=== PATIENT | female | born 1995 | race Caucasian/White ===

== ENCOUNTER 2017-10-04 03:31 | Inpatient (IN) | payer BC ==
[~2017-10-04] VITALS: Ht 170.2 cm; Wt 59.0 kg
[2017-10-04] VITALS (10 sets, daily range): BP systolic 100–136; BP diastolic 51–96
[2017-10-04 04:16] LABS: BASOPHILS % (AUTO) 0.9 % (0.0-2.0); HEMATOCRIT 43.2 % (37.0-47.0); LYMPHOCYTES % (AUTO) 37.8 % (20.0-45.0); MEAN CORPUSCULAR VOLUME 88 FL (80-99); MONOCYTES % (AUTO) 8.9 % (1.0-10.0); NEUTROPHILS % (AUTO) 51.4 % (45.0-75.0); PLATELET COUNT 286 K/UL (150-450); RED BLOOD COUNT 4.91 M/UL (4.20-5.40); RED CELL DISTRIBUTION WIDTH 10.5 % (11.6-14.8); WHITE BLOOD COUNT 6.4 K/UL (4.8-10.8)
[2017-10-04 04:27] LABS: ANION GAP 14 mmol/L (5-15); BLOOD UREA NITROGEN 13 mg/dL (7-18); CALCIUM 8.8 MG/DL (8.5-10.1); CARBON DIOXIDE 24 MMOL/L (21-32); CHLORIDE 105 MMOL/L (98-107); POTASSIUM 3.6 MMOL/L (3.5-5.1); SODIUM 143 MMOL/L (136-145)
[2017-10-04 04:41] LABS: ALANINE AMINOTRANSFERASE 59 U/L (12-78); ALBUMIN 4.6 G/DL (3.4-5.0); ALBUMIN/GLOBULIN RATIO 1.1 (1.0-2.7); ALKALINE PHOSPHATASE 55 U/L (46-116); ASPARTATE AMINO TRANSFERASE 29 U/L (15-37); BILIRUBIN,TOTAL 0.2 MG/DL (0.2-1.0); CKMB 2.2 NG/ML (0.0-3.6); CREATINE KINASE 247 U/L (26-308)
[2017-10-04 05:03] LABS: APPEARANCE,URINE CLEAR; BILIRUBIN, URINE NEGATIVE (NEGATIVE); COLOR,URINE PALE YELLOW; GLUCOSE, URINE (UA) NEGATIVE (NEGATIVE); KETONES,URINE NEGATIVE (NEGATIVE); LEUKOCYTE ESTERASE ,URINE NEGATIVE (NEGATIVE); NITRITE,URINE NEGATIVE (NEGATIVE); PH,URINE 5 (4.5-8.0); PROTEIN,URINE 1+ (NEGATIVE); UROBILINOGEN,URINE NORMAL MG/DL (0.0-1.0)
--- NOTE | 2017-10-04 05:43 | Emergency Room Report ---
History of Present Illness General Chief Complaint: Overdose Source: Family Member, EMS Present Illness HPI Is a 22-year-old female with no significant past medical history. She presents with chief complaint of overdose and suicidal attempt. 911 was called by her mom in [place]. She had call her mother and state that she wanted a overdose and hanging herself. Mom called 911. Police and EMS got there patient was passed out with empty package of Benadryl. There was a full bottle of ibuprofen. There was other sleeping pill. History is limited on this patient because she can't give a history because of her condition. No injury. Allergies: Coded Allergies: UNABLE TO ASSESS (Unverified , 10/04/17) Patient History Past Medical History: see triage record, old chart reviewed Past Surgical History: other Family History: none Social History: ETOH Now: No Immunizations: other Reviewed Nursing Documentation: PMH: Agreed, PSxH: Agreed Nursing Documentation-PMH Past Medical History Deferred: Pt Cognitively Impaired Review of Systems ENT: Denies: sore throat Cardiovascular: Denies: chest pain, palpitations Gastrointestinal/Abdominal: Denies: nausea, vomiting, diarrhea Musculoskeletal: Denies: back problems Skin: Denies: rash Neurological: Denies: EASLEY, seizures All Other Systems: negative except mentioned in HPI Physical Exam Vital Signs Date Time Temp Pulse Resp B/P (MAP) Pulse Ox O2 Delivery O2 Flow Rate FiO2 10/04/17 03:28 98.0 146 18 120/70 98 Room Air 98.1 vitals with tachycardia Sp02 EP Interpretation: reviewed, normal General Appearance: no apparent distress, non-toxic, other - somnolent Head: normocephalic, atraumatic Eyes: PERRL - pupil 5 mm and reactive, EOMI ENT: dry mucus membranes Neck: supple/symm/no masses Respiratory: effort normal, no rhonchi, no wheezing Cardiovascular: no murmur, gallop, rub, other - tachycardic Gastrointestinal: non-tender, no mass, non-distended, no rebound/guarding, other - hypoactive bowel sounds Musculoskeletal: gait & station normal Neurologic: sensory intact, motor strength/tone normal, other - no focal deficit Skin: no rash, normal palpation, other - skin is dry Procedures Critical Care Time Critical Care Time Critical care is mandated in this patient who presented with potential life- threatening drug overdose. Patient require my urgent intervention to attenuate the risks of metabolic collapse which may lead to cardiovascular collapse and . Critical care time is 35 minutes excluding any reportable procedure. Critical care time included evaluation, multiple reevaluation, looking at old charts, interpreting laboratory and diagnostic data, discussing case with patient and family and consultants, and charting. Medical Decision Making Diagnostic Impression: Primary Impression: Drug overdose Qualified Codes: T50.902A - Poisoning by unspecified drugs, medicaments and biological substances, intentional self-harm, initial encounter Additional Impressions: Anticholinergic drug overdose Qualified Codes: T44.3X2A - Poisoning by other parasympatholytics [ anticholinergics and antimuscarinics] and spasmolytics, intentional self-harm, initial encounter Suicidal behavior Qualified Codes: T14.91XA - Suicide attempt, initial encounter Alcohol intoxication Qualified Codes: F10.920 - Alcohol use, unspecified with intoxication, uncomplicated Acute metabolic encephalopathy ER Course Patient presents with drug overdose of Benadryl.. She has anti-cholinergic syndrome. Heart rate improved with IV fluid. I held off on charcoal because of her condition. I worry about aspiration. Unknown time of ingestion. Once patient is more awake will medically clear for psychiatric evaluation/ admission. Patient is currently on a 5150. Laboratory Tests Test 10/04/17 04:00 10/04/17 04:30 White Blood Count 6.4 K/UL (4.8-10.8) Red Blood Count 4.91 M/UL (4.20-5.40) Hemoglobin 15.0 G/DL (12.0-16.0) Hematocrit 43.2 % (37.0-47.0) Mean Corpuscular Volume 88 FL (80-99) Mean Corpuscular Hemoglobin 30.5 PG (27.0-31.0) Mean Corpuscular Hemoglobin Concent 34.7 G/DL (32.0-36.0) Red Cell Distribution Width 10.5 % (11.6-14.8) L Platelet Count 286 K/UL (150-450) Mean Platelet Volume 7.7 FL (6.5-10.1) Neutrophils (%) (Auto) 51.4 % (45.0-75.0) Lymphocytes (%) (Auto) 37.8 % (20.0-45.0) Monocytes (%) (Auto) 8.9 % (1.0-10.0) Eosinophils (%) (Auto) 1.0 % (0.0-3.0) Basophils (%) (Auto) 0.9 % (0.0-2.0) Sodium Level 143 MMOL/L (136-145) Potassium Level 3.6 MMOL/L (3.5-5.1) Chloride Level 105 MMOL/L (98-107) Carbon Dioxide Level 24 MMOL/L (21-32) Anion Gap 14 mmol/L (5-15) Blood Urea Nitrogen 13 mg/dL (7-18) Creatinine 1.0 MG/DL (0.55-1.30) Estimat Glomerular Filtration Rate > 60 mL/min (>60) Glucose Level 150 MG/DL (74-106) H Calcium Level 8.8 MG/DL (8.5-10.1) Total Bilirubin 0.2 MG/DL (0.2-1.0) Aspartate Amino Transf (AST/SGOT) 29 U/L (15-37) Alanine Aminotransferase (ALT/SGPT) 59 U/L (12-78) Alkaline Phosphatase 55 U/L (46-116) Total Creatine Kinase 247 U/L (26-308) Creatine Kinase MB 2.2 NG/ML (0.0-3.6) Creatine Kinase MB Relative Index 0.8 Total Protein 8.7 G/DL (6.4-8.2) H Albumin 4.6 G/DL (3.4-5.0) Globulin 4.1 g/dL Albumin/Globulin Ratio 1.1 (1.0-2.7) Salicylates Level 1.1 ug/mL (2.8-20) L Urine Opiates Screen Negative (NEGATIVE) Acetaminophen Level < 2 MCG/ML (10-30) L Urine Barbiturates Screen Negative (NEGATIVE) Phencyclidine (PCP) Screen Negative (NEGATIVE) Urine Amphetamines Screen Negative (NEGATIVE) Urine Benzodiazepines Screen Negative (NEGATIVE) Urine Cocaine Screen Negative (NEGATIVE) Urine Marijuana (THC) Screen Positive (NEGATIVE) H Serum Alcohol 203 mg/dL Urine Color Pale yellow Urine Appearance Clear Urine pH 5 (4.5-8.0) Urine Specific [place] 1.020 (1.005-1.035) Urine Protein 1+ (NEGATIVE) H Urine Glucose (UA) Negative (NEGATIVE) Urine Ketones Negative (NEGATIVE) Urine Occult Blood Negative (NEGATIVE) Urine Nitrite Negative (NEGATIVE) Urine Bilirubin Negative (NEGATIVE) Urine Urobilinogen Normal MG/DL (0.0-1.0) Urine Leukocyte Esterase Negative (NEGATIVE) Urine RBC 0-2 /HPF (0 - 2) Urine WBC 0-2 /HPF (0 - 2) Urine Squamous Epithelial Cells Occasional /LPF Urine Bacteria Few /HPF (NONE) Urine HCG, Qualitative Negative (NEGATIVE) Lab Results Impression labs unremarkable except for elevated alcohol EKG Diagnostic Results Rate: tachycardiac Rhythm: NSR ST Segments: no acute changes Rhythm Strip Diag. Results Rhythm Strip Time: 05:43 EP Interpretation: yes Rate: 110 Rhythm: NSR, no PVC's, no ectopy Last Vital Signs Date Time Temp Pulse Resp B/P (MAP) Pulse Ox O2 Delivery O2 Flow Rate FiO2 10/04/17 03:40 117 21 Room Air 10/04/17 03:35 97.8 112/63 100 97.8 Status: improved Disposition: XFER TO PSYCH HOSP/UNIT Condition: Stable Referrals: NOT CHOSEN IPA/,REFERRING (PCP) BLOSSOM FROST M.D. Oct 04, 2017 05:43
[2017-10-04] MEDS ORDERED: UNOBMED (06:53)
--- NOTE | 2017-10-04 15:48 | History & Physical ---
History and Physical History & Physicial HP dictated # [id number] HAL REYES Oct 04, 2017 15:48
[2017-10-04] MEDS: D5 1/2NS 1,000 ML IV SCH (16:40)
[2017-10-04] MEDS ORDERED: Vitamin A&D Oint 2oz Tube TOPIC SCH (21:00)
--- NOTE | 2017-10-04 23:30 | History and Physical Report ---
DATE OF ADMISSION: 10/04/2017 CHIEF COMPLAINT: Reported drug overdose and suicidal attempt. HISTORY OF PRESENT ILLNESS: This is a 22-year-old white female, who was brought in after there was a call by the patient's mother from [place] to [facility]. The patient called her mother stating that she wanted to have overdose and hanging herself. Her mother called 1 police and EMS got there. The patient was passed out with empty packets of Benadryl. There was a full bottle of ibuprofen. The patient is completely denying at this time that she took any overdose of medications. She also denies any suicidal ideation, however, she is completely confused about what has happened to her. She says she went to a bar last night and had some drinks. She cannot add any more details. The patient's aunt is present, she knows the aunt and had a conversation with her, on the other hand, aunt is also unaware of the events, which had happened. PAST MEDICAL HISTORY: The patient has a history of migraine and she takes something for that. MEDICATIONS: Again, it is not sure what the patient was taking for migraine, but apparently she was in the position of Benadryl as well as ibuprofen. ALLERGIES: No known drug allergies. SOCIAL HISTORY: The patient says that she only drinks on the weekends. 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 REVIEW OF SYSTEMS: Noncontributory. PHYSICAL EXAMINATION: GENERAL: The patient is a 22-year-old female, in no acute distress. She looks somewhat nervous and jittery, otherwise no acute distress. VITAL SIGNS: Blood pressure 121/77, pulse is 118, temperature 97.3 degrees, and respiratory rate is 28. HEENT: [place] conjunctivae. Anicteric sclerae. NECK: Supple. LUNGS: Clear to auscultation. HEART: S1 and S2 without murmurs or rubs. ABDOMEN: Soft and nontender. EXTREMITIES: No cyanosis or edema. LABORATORY DATA: Laboratory findings, the CBC shows a WBC of 6.2, hematocrit 43.2, hemoglobin is 15, and platelets 286,000. Chemistry panel shows serum sodium of 143, potassium 3.6, chloride 105, CO2 24, BUN is 13, creatinine 1, and blood sugar is 150. ASSESSMENT: This is a 22-year-old female, who is admitted reportedly suicidal ideation and overdose on anticholinergic medications, Benadryl. PLAN: The patient will be hydrated. She will be on a monitored bed. A sitter will be ordered for her. Psychiatric consultation will be obtained. Case was discussed with the aunt, who is present and all questions were answered. Thank you very much. Jack Dawkins M.D. DR: AGATHA JOB#: [id number] CC: MEHUL
[2017-10-05] VITALS: BP 110/74
[2017-10-05] MEDS: D5 1/2NS 1,000 ML IV SCH ×2 (00:30→09:57)
[2017-10-05 04:00] VITALS: BP 102/75
[2017-10-05 08:55] VITALS: BP 118/68
[2017-10-05 11:32] VITALS: BP 110/72
[2017-10-05 14:43] VITALS: BP 104/65
--- NOTE | 2017-10-05 15:09 | Consultation ---
History of Present Illness General Date patient seen: Oct 04, 2017 Chief Complaint: Overdose Present Illness HPI 22-year-old female, who was brought in after the patient's mother from [place] to [facility]. The patient called and text her mother stating that she wanted to hanging herself therefore her mother called 911 police The patient was unconscious. the pt has overdosed on Benadryl. the pt was confused and disoriented. the pt was unable to participate during the evaluation Allergies: Coded Allergies: UNABLE TO ASSESS (Unverified , 10/04/17) Medication History Miscellaneous Medications Unable to Obtain Medications (Unable To Obtain Meds), (Reported) Patient History Limited by: medical condition History Provided By: Patient, Significant Other, PMD Healthcare decision maker unknown Resuscitation status Full Code Advanced Directive on File Past Medical/Surgical History Past Medical/Surgical History: (1) Acute metabolic encephalopathy (2) Alcohol intoxication (3) Drug overdose (4) Suicidal behavior (5) Anticholinergic drug overdose Review of Systems Psychiatric: Reports: anxiety Physical Exam General Appearance: no apparent distress, lethargic, confused Last 24 Hour Vital Signs Date Time Temp Pulse Resp B/P (MAP) Pulse Ox O2 Delivery O2 Flow Rate FiO2 10/05/17 14:43 97.8 71 21 104/65 98 97.8 10/05/17 12:00 67 10/05/17 11:32 97.6 80 20 110/72 10 97.6 10/05/17 08:55 97.4 87 21 118/68 98 97.4 10/05/17 08:00 72 10/05/17 04:00 97.7 60 20 102/75 Room Air 99.0 97.7 10/05/17 03:35 62 10/05/17 00:00 97.9 69 20 110/74 Room Air 98.0 97.9 10/04/17 20:00 83 10/04/17 19:15 97.7 80 22 136/73 Room Air 100.0 97.7 10/04/17 16:00 103 Intake and Output 10/04/17 10/05/17 19:00 07:00 Intake Total 341 ml 1187 ml Balance 341 ml 1187 ml Intake Oral 50 ml IV Total 291 ml 1187 ml # Voids 4 4 Laboratory Tests Test 10/05/17 03:15 Magnesium Level 1.9 MG/DL (1.8-2.4) Thyroid Stimulating Hormone (TSH) 6.521 uiU/mL (0.358-3.740) Height (Feet): 5 Height (Inches): 7.00 Weight (Pounds): 130 Medications Current Medications Medications (Trade) Dose Ordered Sig/Ivan Route PRN Reason Start Time Stop Time Status Last Admin Dose Admin Dextrose (Dextrose 50%) STAT PRN IV Hypoglycemia 10/04/17 15:45 11/03/17 15:44 Dextrose/Sodium Chloride 1,000 ml @ 125 mls/hr Q8H IV 10/04/17 17:00 11/03/17 16:59 10/05/17 09:57 Vitamin A/Vitamin D (A & D Oint) 1 applic DAILYPRN TOPIC 10/04/17 21:00 11/03/17 20:59 Assessment/Plan Status: stable Assessment/Plan Anxiety d/o s/p OD the pt was unable to participate the pts 5150 will be Surekha Travis M.D. Oct 05, 2017 15:09
[2017-10-05] MEDS ORDERED: D5 1/2NS 1000ml IV ONE (15:49)
--- NOTE | 2017-10-05 21:14 | General Progress Note ---
Assessment/Plan Status: stable, progressing Assessment/Plan the pt is not at imminent dts/dto the pt is not suicidal spoke with the pts mom and she feels the pt should stay with her friend and not her aunt the pt didnt endorse si/hi the pt was educated regarding alcohol use and mixing alcohol with other meds and mj. mdd mild anxiety d/o no meds the pt to see psychiatrist yasmin Subjective Date patient seen: Oct 05, 2017 Neurologic/Psychiatric: Reports: anxiety, depressed Allergies: Coded Allergies: UNABLE TO ASSESS (Unverified , 10/04/17) Objective Last 24 Hour Vital Signs Date Time Temp Pulse Resp B/P (MAP) Pulse Ox O2 Delivery O2 Flow Rate FiO2 10/05/17 14:43 97.8 71 21 104/65 98 97.8 10/05/17 12:00 67 10/05/17 11:32 97.6 80 20 110/72 10 97.6 10/05/17 08:55 97.4 87 21 118/68 98 97.4 10/05/17 08:00 72 10/05/17 04:00 97.7 60 20 102/75 Room Air 99.0 97.7 10/05/17 03:35 62 10/05/17 00:00 97.9 69 20 110/74 Room Air 98.0 97.9 Intake and Output 10/04/17 10/05/17 19:00 07:00 Intake Total 341 ml 1187 ml Balance 341 ml 1187 ml Intake Oral 50 ml IV Total 291 ml 1187 ml # Voids 4 4 Laboratory Tests 10/05/17 03:15: Magnesium Level 1.9, Thyroid Stimulating Hormone (TSH) 6.521H Height (Feet): 5 Height (Inches): 7.00 Weight (Pounds): 130 General Appearance: no apparent distress, alert Neurologic: alert, oriented x 3, responsive Surekha Olvera M.D. Oct 05, 2017 21:14
--- NOTE | 2017-10-06 15:11 | Discharge Summary ---
Discharge Summary Hospital Course Date of Admission Oct 04, 2017 at 08:12 Date of Discharge Oct 05, 2017 at 15:50 Admitting Diagnosis Benadryl overdose HPI Hermelinda Decker is a 22 year old female who was admitted on Oct 04, 2017 at 08:12 for Benadryl Overdose Hospital Course dc summary #[id number] Discharge Condition Upon Discharge: stable Discharge Disposition Patient was discharged to Home (01) Discharge Diagnoses: Discharge Instructions Discharge Instructions Special Instructions I have been assigned to complete a D/C Summary on this account. I was not involved in the patient management Catia Murray NP ([place]te[place]) Oct 06, 2017 15:11
--- NOTE | 2017-10-06 23:30 | Discharge Summary 2 SIG ---
DATE OF ADMISSION: 10/04/2017 DATE OF DISCHARGE: 10/05/2017 REASON FOR ADMISSION: 22 years old female without significant past medical history, was apparently overdosed on Benadryl. She called her mother at [place] and stated that she wanted to overdose and hang herself. Mother called 911. Police and paramedics found the patient passed out with empty package of Benadryl. There was a full bottle of ibuprofen and there was another bottle of sleeping pills. At the time of presentation, the patient was altered, but no injury was reported. The patient was tachycardic with a heart rate -146, pulse oximetry was stable on room air. Urine toxicology screen was positive for marijuana. Serum alcohol level - 203. No leukocytosis. Stable hemoglobin and hematocrit. Electrolytes stable along with renal parameters. Stable LFT. Urinalysis was negative for UTI. Urine test was negative. EKG showed sinus tachycardia, no acute ischemic changes. The patient was given fluids. Heart rate improved to 117. The patient was admitted with diagnoses of acute toxic metabolic encephalopathy, drug overdose (Benadryl)/ anticholinergic drug overdose, suicidal behavior, and alcohol intoxication. HOSPITAL COURSE: The patient was admitted to monitored floor. Sitter was assigned to patient for safety. The patient was hydrated. Laboratories were closely monitored along with vital signs. Psychiatric evaluation was requested. Tachycardia resolved. Pulse oximetry was stable on the room air. Psychiatrist seen and evaluated the patient. According to psychiatrist, the patient had anxiety disorder and mild major depressive disorder. Per psychiatrist, the patient was not an imminent danger to self or to others. The patient was not suicidal. Psychiatrist spoke with the patient's mother, who felt that the patient should stay with her friend and not with her aunt. The patient did not endorse any suicidal or homicidal ideations. The patient was educated regarding alcohol use and mixing alcohol with other medication and marijuana. Aunt was at the bedside. The patient advised to see psychiatrist next week. The patient was awake, alert, oriented and behaving and acting properly. The patient was stable for discharge. Due to the rapid and unexpected improvement in patient's condition, the patient was discharged in one day. FINAL DIAGNOSES: 1. Acute toxic metabolic encephalopathy due to the alcohol intoxication and anticholinergic drug overdose. 2. Anticholinergic drug overdose with Benadryl 3. Suicidal behavior, resolved. 4. Alcohol intoxication, resolved. 5. Major depressive disorder, mild. 6. Anxiety disorder. DISCHARGE INSTRUCTIONS: The patient discharged home. Follow up with psychiatrist next week. DISCHARGE MEDICATION: None. Jack Dawkins M.D. I have been assigned to dictate discharge summary on this account and I was not involved in the patient's management. Catia ValdezMount Sinai HospitalRaman NJulissa DR: KOFI JOB#: [id number] CC: MEHUL
--- NOTE | 2017-10-07 18:46 | Cardiology Report ---
APPROVED REPORT EKG Measurement Heart [id number] N[address] abnormality Abnormal ECG
== END 2017-10-05 15:50 | disposition home or self-care (01) | DRG 917 ==
LOC: EDBD 03:31 → EMR 04:36 → 2W 08:12 → EDBEDREQ 14:52
DX: T44.3X2A Poisoning by other parasympatholytics [anticholinergics and antimuscarinics] and spasmolytics, intentional self-harm, initial encounter (principal); G92 Toxic encephalopathy; T14.91XA Suicide attempt, initial encounter; T45.0X2A Poisoning by antiallergic and antiemetic drugs, intentional self-harm, initial encounter; F41.9 Anxiety disorder, unspecified; F32.9 Major depressive disorder, single episode, unspecified; F10.129 Alcohol abuse with intoxication, unspecified
CPT/HCPCS: 36415; 80053; 80307; 80329; 81003; 81025; 82550; 82553; 83735; 84443; 85025; 93005; 96361; 96374; 96375; 99291; J2405